=== PATIENT | female | born 1970 ===

== ENCOUNTER 2019-02-12 19:32 | Outpatient (REF) | payer OTHER, SELFPAY ==
[2019-02-12 19:52] LABS: Anion Gap 8.3 mmol/L (3-11); BUN 12 mg/dL (7-18); CO2 27.7 mmol/L (21.0-32.0); CREATININE 0.63 mg/dL (0.55-1.02); Calcium 10.3 mg/dL (8.5-10.1); Chloride 101 mmol/L (98-107); Glucose 94 mg/dL (70-100); Potassium 4.3 mmol/L (3.5-5.1); Sodium 137 mmol/L (136-145)
== END 2019-02-12 19:52 ==
LOC: NCHCN 19:32
PROVIDERS: PCP Internal Medicine; Visit Provider Internal Medicine
DX: I10 Essential (primary) hypertension (principal)
CPT/HCPCS: 80048

== ENCOUNTER 2020-04-21 20:49 | Outpatient (REF) | payer OTHER, SELFPAY ==
[2020-04-21 19:47] LABS: Chloride 100 mmol/L (98-107); Potassium 4.7 mmol/L (3.5-5.1); Sodium 137 mmol/L (136-145)
[2020-04-21 20:26] LABS: BUN 14 mg/dL (7-18); CREATININE 0.74 mg/dL (0.55-1.02); Calcium 10.7 mg/dL (8.5-10.1); Glucose 102 mg/dL (74-106); TSH 0.78 uIU/mL (0.36-3.74)
== END 2020-04-21 21:09 ==
LOC: NCHCN 20:49
PROVIDERS: PCP Internal Medicine; Visit Provider Internal Medicine
DX: I10 Essential (primary) hypertension (principal); R00.2 Palpitations
CPT/HCPCS: 80048; 84443

== ENCOUNTER 2021-11-16 20:00 | Outpatient (REF) | payer OTHER, SELFPAY ==
--- OUTSIDE RECORDS SUMMARY | 2021-11-16 20:03 | XMS_ITS ---
:1970 Author Care Team Providers Name Role Phone YASH CHAPMAN MD Primary Care Provider [phone] YURY GARCIA MD General Surgeon [phone] Allergies Code Code System Name Reaction Severity Status Onset NKDA ? Medications Name Status Start Date Stop Date ? ? lisinopril 20 mg-hydrochlorothiazide Active ? Not available 12.5 mg tablet pantoprazole 40 mg tablet,delayed release Active ? Not available Take 1 tablet twice a day by oral route. penicillin V potassium 500 mg tablet Completed ? 07/13/2020 Vitamin D Active ? Not available 1000 units daily Problems Name Status Onset Date Source ? Venous Varices Active 03/26/2019 ? Hypertensive Disorder Active 08/04/2020 ? Gastric Reflux Active 08/04/2020 ? Disorder of Breast Active ? History Procedures Date Name Performed by ? 08/04/2020 Egd Information not avai lable Notes: hiatal hernia, duodenitis, gas tric polyp 11/29/2016 Colonoscopy Information not avai lable Notes: WNL 09/02/2007 Appendectomy Information not avai lable Notes: Laparoscopic 09/02/1997 Laparotomy Exploratory Information not a vailable Results Lab Results Date Name Specimen Result Interpretation Description Value Range Status Address ? 11/13/2021 SARS CoV 2 RNA SWAB ? Covid PCR danya-cov-2 danya-c ov-2 Final [place] (COVID-19), Screen not not Count ry QL, director of sleep-PCR, detected detected [facility] (Inte rnal): [address] 10/31/2021 SARS CoV 2 RNA SWAB ? Covid PCR danya-cov-2 danya-c ov-2 Final [place] (COVID-19), Screen not not Count ry QL, director of sleep-PCR, detected detected Hospital [facility] Respiratory (Inte rnal): Specimen [address] 10/13/2021 SARS CoV 2 RNA SWAB ? Covid PCR danya-cov-2 danya-c ov-2 [place] ([place]), Screen not not Count ry QL, director of sleep-PCR, detected detected Hospital Lab Respiratory (Inte rnal): Specimen [address] , [facility] 09/28/2021 SARS CoV 2 RNA SWAB ? Covid PCR danya-cov-2 danya-c ov-2 [facility] [place] ([place]), Screen not not Count ry QL, director of sleep-PCR, detected detected Hospital Lab Respiratory (Inte rnal): Specimen [address] , [facility] 09/21/2021 SARS CoV 2 RNA SWAB ? Covid PCR danya-cov-2 danya-c ov-2 [facility] [place] (COVID-[place]), Screen not not Count ry QL, director of sleep-PCR, detected detected Hospital Lab Respiratory (Inte rnal): Specimen [address] , [facility] 09/14/2021 SARS CoV 2 RNA SWAB ? Covid PCR danya-cov-2 danya-c ov-2 [facility] [place] (COVID-[place]), Screen not not Count ry QL, director of sleep-PCR, detected detected Hospital Lab Respiratory (Inte rnal): Specimen [address] , [facility] 09/11/2021 SARS CoV 2 RNA SWAB ? Covid PCR danya-cov-2 danya-c ov-2 [facility] [place] (COVID-[place]), Screen not not Count ry QL, director of sleep-PCR, detected detected Hospital Lab Respiratory (Inte rnal): Specimen [address] , [facility] 08/24/2021 SARS CoV 2 RNA SWAB ? Covid PCR danya-cov-2 danya-c ov-2 [facility] [place] (COVID-[place]), Screen not not Count ry QL, director of sleep-PCR, detected detected Hospital Lab Respiratory (Inte rnal): Specimen [address] , [facility] 08/18/2021 SARS CoV 2 RNA SWAB ? Covid PCR danya-cov-2 danya-c ov-2 [facility] [place] (COVID-[place]), Screen not not Count ry QL, director of sleep-PCR, detected detected Hospital Lab Respiratory (Inte rnal): Specimen [address] , [facility] 06/10/2021 SARS CoV 2 RNA SWAB ? Covid PCR danya-cov-2 danya-c ov-2 [facility] [place] (COVID-[place]), Screen not not Count ry QL, director of sleep-PCR, detected detected Hospital Lab Respiratory (Inte rnal): Specimen [address] , [facility] t 05/16/2021 SARS CoV 2 RNA SWAB ? Covid PCR danya-cov-2 danya-c ov-2 [facility] [place] (COVID-[place]), Screen not not Count ry QL, director of sleep-PCR, detected detected Hospital Lab Respiratory (Inte rnal): Specimen [address] , [facility] t 05/09/2021 SARS CoV 2 RNA SWAB ? Covid PCR danya-cov-2 danya-c ov-2 [facility] [place] (COVID-[place]), Screen not not Count ry QL, director of sleep-PCR, detected detected Hospital Lab Respiratory (Inte rnal): Specimen [address] , [facility] t 04/02/2021 SARS CoV 2 RNA SWAB ? Covid PCR danya-cov-2 danya-c ov-2 [facility] [place] (COVID-[place]), Screen not not Count ry QL, director of sleep-PCR, detected detected Hospital Lab Respiratory (Inte rnal): Specimen [address] , [facility] t 01/27/2021 SARS CoV 2 RNA SWAB ? Covid PCR danya-cov-2 danya-c ov-2 [facility] [place] (COVID-[place]), Screen not not Count ry QL, director of sleep-PCR, detected detected Hospital Lab Respiratory (Inte rnal): Specimen [address] , [facility] t 01/10/2021 SARS CoV 2 RNA SWAB ? Covid PCR danya-cov-2 danya-c ov-2 [facility] [place] (COVID-[place]), Screen not not Count ry QL, director of sleep-PCR, detected detected Hospital Lab Respiratory (Inte rnal): Specimen [address] , [facility] t 12/25/2020 SARS CoV 2 RNA SWAB ? Covid PCR danya-cov-2 danya-c ov-2 [facility] [place] (COVID-19), Screen not not Count ry QL, director of sleep-PCR, detected detected Hospital Lab Respiratory (Inte rnal): Specimen [address] , [facility] t 11/29/2020 SARS CoV 2 RNA SWAB ? Covid PCR danya-cov-2 danya-c ov-2 [facility] [place] (COVID-[place]), Screen not not Count ry QL, director of sleep-PCR, detected detected Hospital Lab Respiratory (Inte rnal): Specimen [address] , [facility] t 10/18/2020 SARS CoV 2 RNA SWAB ? Covid PCR danya-cov-2 danya-c ov-2 [facility] [place] (COVID-[place]), Screen not not Count ry QL, director of sleep-PCR, detected detected Hospital Lab Respiratory (Inte rnal): Specimen [address] t 08/04/2020 Pathology TISS ? Report (see below) ? Sarina alfaro [facility] (Internal) : [address] t 03/27/2020 SARS CoV 2 RNA SWAB ? Covid-19 negative negativ e [facility] (COVID-19), Result Count ry QL, director of sleep-PCR, Hosp ital Lab Respiratory (Inte rnal): Specimen [address] t ? ? SWAB ? Performin the broad ? Final [facility] (Internal) : [address] t 02/28/2020 SARS CoV 2 RNA SWAB ? Covid-19 negative negativ e [facility] (COVID-19), [facility] Count ry QL, director of sleep-PCR, Result Hosp ital Lab Respiratory (Inte rnal): Specimen [address] t ? ? SWAB ? Performin panther ? Final [facility] ab (Internal) : [address] 12/19/2017 Venipuncture BLD ? Venpn* ? ? [facility] (Internal) : [address] 12/19/2017 Vitamin B12, S ? Vit B12 595.0 pg/mL 239.0-9 31. [facility] Serum 0 pg/mL [facility] (Internal) : [address] 12/19/2017 TSH, Serum or S ? Tsh 1.13 0.47-4.68 Mars tidwell [place] Plasma u[IU]/mL u[IU]/mL [facility] ab (Internal) : [address] t 12/19/2017 BMP, Serum or S ? g/r 103 mg/dL 74-106 Mars Aceves Plasma mg/dL [facility] (Internal) : [address] t ? ? S ? Bun 9 mg/dL 7-17 mg/dL [facility] ab (Internal) : [address] t ? ? S ? Crea 0.60 mg/dL 0.52-1.04 Final [facility] mg/dL [facility] (Internal) : [address] t ? ? S ? Ca 10.0 mg/dL 8.4-10.2 Final [facility] mg/dL [facility] ab (Internal) : [address] t ? ? S Low Na 133 mmol/L 137-145 Final [place] mmol/L [facility] ab (Internal) : [address] t ? ? S ? K 3.6 mmol/L 3.5-5.1 Final [place] mmol/L [facility] L ab (Internal) : [address] t ? ? S Low Cl 97 mmol/L 98-107 Final [place] mmol/L [facility] L ab (Internal) : [address] ? ? S ? Tco2 25.0 mmol/L 22.0-30.0 Final No rth mmol/L [facility] (Internal) : [address] 10/06/2017 Streptococcus THRT ? Final microbiology ? Final [place] [facility] a, results Country Culture, Hospital Lab Throat (Internal) : [address] 10/11/2016 Giardia STL ? Giardia negative negative Final [place] Lamblia Ag, Count ry EIA, Stool Hospit al Lab (Internal) : [address] 10/11/2016 Plasmodium Sp, STL ? Specimen (see note) ? Final [place] Light Descriptio Countr y Microscopy, n Hospi jia Lab Blood (Internal) : [address] ? ? STL ? Result (see note) ? Final [facility] (Internal) : [address] ? ? STL ? Report (see note) ? Final [facility] (Internal) : [address] Past Encounters 07/13/2020 Gastroesophageal Reflux Disease Yury Garcia MD: [address] [place] [address], Ph. Social History Tobacco Smoking Status Never Smoker Vaccine List Vaccine Type COVID-19, mRNA, LNP-S, PF, 30 mcg/0.3 mL dose ([facility]) 08/18/2020?0.3 mL 09/07/2020?0.3 mL 06/03/2021?0.3 mL influenza, injectable, quadrivalent 06/25/2018 06/30/2019 06/10/2020 05/30/2021?0.5 mL influenza, live, intranasal 06/13/2011 influenza, seasonal, injectable 06/26/2017?0.5 mL novel [id number], all formulation s 06/13/2009 Tdap 08/23/2009 Plan of Care Reminders Provider Appointments None ? ? recorded. Lab None ? ? recorded. Referral None ? ? recorded. Procedures None ? ? recorded. Surgeries None ? ? recorded. Imaging None ? ? recorded. Vitals Height Blood Pressure 175.26 cm 114/76 mm[Hg]
[2021-11-16 21:49] LABS: Anion Gap 7.8 mmol/L (3-11); BUN 10 mg/dL (7-18); CO2 28.2 mmol/L (21.0-32.0); CREATININE 0.7 mg/dL (0.55-1.02); Calcium 10.2 mg/dL (8.5-10.1); Chloride 103 mmol/L (98-107); Glucose 95 mg/dL (74-106); Potassium 4.3 mmol/L (3.5-5.1); Sodium 139 mmol/L (136-145); TSH 0.74 uIU/mL (0.36-3.74)
== END 2021-11-16 20:01 | disposition home or self-care (01) ==
LOC: NCHCN 20:00
PROVIDERS: PCP Internal Medicine; Visit Provider Internal Medicine
DX: I10 Essential (primary) hypertension (principal)
CPT/HCPCS: 80048; 84443

== ENCOUNTER 2022-11-08 12:06 | Outpatient (REF) | payer OTHER, SELFPAY ==
[2022-11-08 19:21] LABS: HCT 38.1 % (36.0-46.0); HGB 13.1 g/dL (11.2-15.7); MCH 30.2 pg (27.0-33.0); MCHC 34.4 % (32.0-36.0); MCV 88 fL (80-95); MPV 9.1 fL (8.0-11.0); Platelet Count 327 10^3/uL (130-400); RBC 4.34 10^6/uL (3.93-5.22); RDW 11.9 % (11.7-14.6)
[2022-11-08 19:32] LABS: ESR 5 mm/hr (0-30)
[2022-11-08 19:39] LABS: Anion Gap 10.1 mmol/L (3-11); BUN 11 mg/dL (7-18); CO2 25.9 mmol/L (21.0-32.0); CREATININE 0.8 mg/dL (0.55-1.02); Calcium 10.4 mg/dL (8.5-10.1); Chloride 99 mmol/L (98-107); Glucose 100 mg/dL (74-106); Potassium 4.3 mmol/L (3.5-5.1); Sodium 135 mmol/L (136-145); TSH 0.76 uIU/mL (0.36-3.74)
[2022-11-08 20:01] LABS: C-Reactive Protein < 0.05 mg/dL (0.0-0.3)
== END 2022-11-08 12:07 | disposition home or self-care (01) ==
LOC: NCHCN 12:06
PROVIDERS: PCP Internal Medicine; Visit Provider Internal Medicine
DX: Z00.00 Encounter for general adult medical examination without abnormal findings (principal); E83.52 Hypercalcemia; I10 Essential (primary) hypertension; R20.8 Other disturbances of skin sensation
CPT/HCPCS: 80048; 85027; 85652; 84443; 86140